=== PATIENT | female | born 1955 | race Caucasian/White ===

== ENCOUNTER 2021-01-11 07:58 | Emergency (ER) | payer MEDICARE ==
[2021-01-11 08:26] LABS: EOSINOPHIL 5.2 % (0-7); HCT 42.6 % (37.0-47.0); HGB 14.6 g/dl (12.5-16.0); LYMPHOCYTE 34.9 % (15-48); MCH 32.7 pg (25.0-31.0); MCHC 34.3 g/dL (32.0-36.0); MCV 95.3 fL (78.0-100.0); MONOCYTE 13.1 % (0-12); MPV 10.8 fL (6.0-9.5); NEUTROPHIL 45.6 % (41-80); NRBC 0; PLT 305 K/uL (150-400); RBC 4.47 M/uL (4.20-5.40); RDW 11.8 % (11.5-14.0)
[2021-01-11 08:43] LABS: INR 0.98 (0.9-1.2); PROTHROMBIN TIME 12.4 SECONDS (11.8-13.4); PTT 31.7 SECONDS (24.4-34.7)
[2021-01-11 08:45] LABS: BILIRUBIN - TOTAL 0.5 mg/dL (0.2-1.0); BUN/CREAT RATIO (CALC) 15.8 RATIO; CREATININE 0.57 mg/dL (0.51-0.95); GLOBULIN (CALCULATION) 3.7 g/dL; POTASSIUM 4.1 mmol/L (3.5-5.1); TOTAL PROTEIN 7.7 g/dL (6.4-8.2)
== END 2021-01-11 09:10 | disposition home or self-care (01) ==
LOC: FER 07:58
PROVIDERS: Internal Medicine
DX: R07.89 Other chest pain (principal); I10 Essential (primary) hypertension; R73.9 Hyperglycemia, unspecified; Z88.1 Allergy status to other antibiotic agents; Z88.2 Allergy status to sulfonamides; Z79.899 Other long term (current) drug therapy; Z98.890 Other specified postprocedural states; Z91.040 Latex allergy status; Z82.49 Family history of ischemic heart disease and other diseases of the circulatory system
CPT/HCPCS: 36415; 71045; 80053; 84484; 85025; 85610; 85730; 93005; J3490